=== PATIENT | female | born 1945 | race Caucasian/White ===

== ENCOUNTER 2023-04-13 09:31 | Outpatient (CLI) | payer MEDICARE | END 2023-04-13 23:59 | disposition critical access hospital (66) | LOC: EMS 09:31 | DX: R06.02 Shortness of breath (principal); R07.1 Chest pain on breathing | CPT/HCPCS: A0425; A0429 ==

== ENCOUNTER 2023-04-13 09:38 | Emergency (ER) | payer MEDICARE ==
--- NOTE | 2023-04-13 10:23 | XRAY Report ---
PROCEDURE: Chest 1V INDICATIONS: Chest pain TECHNIQUE: One view of the chest was acquired. COMPARISON: None. FINDINGS: Surgical changes and devices: None. Lungs and pleura: No pleural effusions or pneumothorax. Question mild interstitial pulmonary edema. Mediastinum: Mediastinal contours appear normal. Cardiomegaly. Bones and chest wall: No suspicious bony lesions. Overlying soft tissues appear unremarkable. IMPRESSION: Cardiomegaly. Question mild acute pulmonary edema. Reviewed by: Kye Meyer MD on 04/13/2023 10:22 AM [facility] Approved by: Kye Meyer MD on 04/13/2023 10:22 AM [facility] Station ID: [id number]
[2023-04-13 10:35] LABS: BASOPHILS # (AUTO) 0.1 10^3/uL (0.0-0.1); BASOPHILS % (AUTO) 0.6 %; EOSINOPHILS # (AUTO) 0.3 10^3/uL (0.0-0.7); EOSINOPHILS % (AUTO) 3.3 %; HCT - HEMATOCRIT 32.7 % (37.0-47.0); HGB - HEMOGLOBIN 10.1 g/dL (12.0-16.0); LYMPHOCYTES # (AUTO) 0.7 10^3/uL (1.5-3.5); LYMPHOCYTES % (AUTO) 8.8 %; MEAN CORPUSCULAR HEMOGLOBIN 28.5 pg (27.0-31.0); MEAN CORPUSCULAR HGB CONC 30.9 g/dL (32.0-36.0); MEAN CORPUSCULAR VOLUME 92.1 fL (81.0-99.0); MONOCYTES # (AUTO) 1.6 10^3/uL (0.0-1.0); MONOCYTES % (AUTO) 19.8 %; NEUTROPHILS # (AUTO) 5.4 10^3/uL (1.5-6.6); NEUTROPHILS % (AUTO) 67.2 %; PLT - PLATELET COUNT 167 10^3/uL (130-450); RED BLOOD COUNT 3.55 10^6/uL (4.20-5.40); RED CELL DISTRIBUTION WIDTH 18.9 % (12.0-15.0)
[2023-04-13 10:47] LABS: SLIDE REVIEW? Indicated
--- NOTE | 2023-04-13 10:48 | ED Physician Documentation ---
PD HPI DYSPNEA - Stated complaint Stated Complaint: SOA - Chief complaint Chief Complaint: Resp - History obtained from History obtained from: Patient - History of Present Illness Timing - onset: How many days ago Timing - onset during: Rest, Light activity Timing - duration: Days (several days) Timing - details: Gradual onset, Still present Inciting event(s): Out of meds (not out of meds per se, but was not placed on diuretic when moved to the [facility] few weeks ago.). No: URI Worsened by: Exertion (just light activity the past few days.), Laying flat Associated symptoms: Wheezing. No: Fever, Cough Similar symptoms before: Diagnosis (CHF in the past) Review of Systems Constitutional: denies: Fever, Chills Nose: reports: Congestion Cardiac: reports: Chest pain / pressure, Palpitations Respiratory: reports: Dyspnea, Cough GI: denies: Abdominal Pain, Nausea, Vomiting, Diarrhea PD PAST MEDICAL HISTORY - Past Medical History Past Medical History: Yes Cardiovascular: Congestive heart failure, Hypertension, Coronary artery disease, [place], Atrial fibrillation Respiratory: Sleep apnea Derm: Other Other Past Medical History: cellulitis, pressure ulcer, - Past Surgical History Past Surgical History: No - Present Medications Home Medications: Ambulatory Orders Medication Instructions Recorded Confirmed Albuterol Sulf [Ventolin Hfa 2 puffs INH Q4HR PRN #1 each 04/13/23 Inhaler] Apixaban [Eliquis] 5 mg PO BID 04/13/23 04/13/23 Gabapentin [Neurontin] 300 mg PO BID 04/13/23 04/13/23 Metoprolol Succinate [Toprol Xl] 25 mg PO DAILY #20 tablet 04/13/23 Nystatin [Klayesta] 15 gm TP DAILY 04/13/23 04/13/23 Oxycodone HCl/Acetaminophen 1 each PO Q6HR PRN 04/13/23 04/13/23 [Oxycodone-Acetaminophen 5-325] SULFAM/TRIM 800/160 Prepack 2 1 each PO BID 04/13/23 04/13/23 [BACTRIM DS 800/160 Prepack 2] cephALEXin [Keflex] 500 mg PO QID #20 cap 04/13/23 hydroCHLOROthiazide [Hydrodiuril] 25 mg PO DAILY #20 tablet 04/13/23 - Allergies Allergies/Adverse Reactions: Allergies Allergy/AdvReac Type Severity Reaction Status Date / Time Penicillins Allergy Rash Verified 04/13/23 09:56 - Living Situation Living Arrangement: reports: residential (was at [facility] recently for dyspnea. Dx with leg cellulitis both sides. Did not have chest symptoms at that time. ) - Social History Does the pt smoke?: No Smoking Status: Never smoker Does the pt drink ETOH?: Yes Does the pt have substance abuse?: No PD ED PE NORMAL - Vitals Vital signs reviewed: Yes - General General: No acute distress, Well developed/nourished. No: Alert and oriented X 3 - Neck Neck: Supple, no meningeal sign, No adenopathy - Cardiac Cardiac: RRR, No murmur - Respiratory Respiratory: No: Clear bilaterally (some exp wheezing noted, but no oarse sounds per se. Some fine crackles noted lower aspect of both sides lungs. ) - Abdomen Abdomen: Soft, Non tender - Derm Derm: Normal color, Warm and dry, Other (left breast enlarged with redness, firmness of the skin, warmth of the skin and swelling lateral breast and chest wall c/w infection. No fluctuance. ) - Extremities Extremities: Other (she has wraps on both sides ower legs. No calf enderness per se. ) - Neuro Neuro: Alert and oriented X 3, No motor deficit, Normal speech Results - Vitals Vitals: Vital Signs - 24 hr 04/13/23 04/13/23 04/13/23 09:47 11:56 12:09 Temperature 36.7 C Heart Rate 100 108 H 102 H Respiratory 15 14 20 Rate Blood Pressure 117/72 123/63 O2 Saturation 98 99 04/13/23 04/13/23 04/13/23 13:00 15:00 17:00 Temperature Heart Rate 107 H 102 H 92 Respiratory 18 17 15 Rate Blood Pressure 122/90 H 125/81 H 124/81 H O2 Saturation 95 95 97 04/13/23 04/13/23 17:19 17:45 Temperature Heart Rate 85 92 Respiratory 20 20 Rate Blood Pressure 121/84 H O2 Saturation 98 Oxygen O2 Source Room air - Labs Labs: Laboratory Tests 04/13/23 04/13/23 04/13/23 10:30 10:30 10:30 WBC 8.0 RBC 3.55 L Hgb 10.1 L Hct 32.7 L MCV 92.1 MCH 28.5 MCHC 30.9 L RDW 18.9 H Plt Count 167 MPV 11.0 H Neut # (Auto) 5.4 Lymph # (Auto) 0.[address] # (Auto) 1.6 H Eos # (Auto) 0.3 Baso # (Auto) 0.1 Absolute Nucleated RBC 0.00 Nucleated RBC % 0.0 Manual Slide Review Indicated RBC Morph Micro Appear 3+ ANISOCYTOSIS D-Dimer 506.9 H Sodium 135 Potassium 4.4 Chloride 102 Carbon Dioxide 30 Anion Gap 3.0 L BUN 15 Creatinine 0.7 Estimated GFR (MDRD) 81 L Glucose 101 Calcium 9.2 Magnesium Total Bilirubin 1.3 H AST 16 ALT 10 Alkaline Phosphatase 164 H Troponin I High Sens 484.9 H* B-Natriuretic Peptide Total Protein 6.9 Albumin 3.0 L Globulin 3.9 Albumin/Globulin Ratio 0.8 L Lipase 51 Nasal Adenovirus (PCR) Nasal B. parapertussis DNA (PCR) Nasal Coronavir 229E PCR Nasal Coronavir HKU1 PCR Nasal Coronavir NL63 PCR Nasal Coronavir OC43 PCR Nasal Enterovir/Rhinovir PCR Nasal Influenza B PCR Nasal Influenza A PCR Nasal Parainfluen 1 PCR Nasal Parainfluen 2 PCR Nasal Parainfluen 3 PCR Nasal Parainfluen 4 PCR Nasal RSV (PCR) Nasal B.pertussis DNA PCR Nasal C.pneumoniae (PCR) Joesph Human Metapneumo PCR Nasal M.pneumoniae (PCR) Nasal SARS-CoV-2 (PCR) 04/13/23 04/13/23 04/13/23 10:30 10:30 11:46 WBC RBC Hgb Hct MCV MCH MCHC RDW Plt Count MPV Neut # (Auto) Lymph # (Auto) [place] # (Auto) Eos # (Auto) Baso # (Auto) Absolute Nucleated RBC Nucleated RBC % Manual Slide Review RBC Morph Micro Appear D-Dimer Sodium Potassium Chloride Carbon Dioxide Anion Gap BUN Creatinine Estimated GFR (MDRD) Glucose Calcium Magnesium 1.4 L Total Bilirubin AST ALT Alkaline Phosphatase Troponin I High Sens B-Natriuretic Peptide 396 H Total Protein Albumin Globulin Albumin/Globulin Ratio Lipase Nasal Adenovirus (PCR) NOT DETECTED Nasal B. parapertussis DNA (PCR) NOT DETECTED Nasal Coronavir 229E PCR NOT DETECTED Nasal Coronavir HKU1 PCR DETECTED A Nasal Coronavir NL63 PCR NOT DETECTED Nasal Coronavir OC43 PCR NOT DETECTED Nasal Enterovir/Rhinovir PCR NOT DETECTED Nasal Influenza B PCR NOT DETECTED Nasal Influenza A PCR NOT DETECTED Nasal Parainfluen 1 PCR NOT DETECTED Nasal Parainfluen 2 PCR NOT DETECTED Nasal Parainfluen 3 PCR NOT DETECTED Nasal Parainfluen 4 PCR NOT DETECTED Nasal RSV (PCR) NOT DETECTED Nasal B.pertussis DNA PCR NOT DETECTED Nasal C.pneumoniae (PCR) NOT DETECTED Joesph Human Metapneumo PCR NOT DETECTED Nasal M.pneumoniae (PCR) NOT DETECTED Nasal SARS-CoV-2 (PCR) NOT DETECTED 04/13/23 13:26 WBC RBC Hgb Hct MCV MCH MCHC RDW Plt Count MPV Neut # (Auto) Lymph # (Auto) [place] # (Auto) Eos # (Auto) Baso # (Auto) Absolute Nucleated RBC Nucleated RBC % Manual Slide Review RBC Morph Micro Appear D-Dimer Sodium Potassium Chloride Carbon Dioxide Anion Gap BUN Creatinine Estimated GFR (MDRD) Glucose Calcium Magnesium Total Bilirubin AST ALT Alkaline Phosphatase Troponin I High Sens 490.3 H* B-Natriuretic Peptide Total Protein Albumin Globulin Albumin/Globulin Ratio Lipase Nasal Adenovirus (PCR) Nasal B. parapertussis DNA (PCR) Nasal Coronavir 229E PCR Nasal Coronavir HKU1 PCR Nasal Coronavir NL63 PCR Nasal Coronavir OC43 PCR Nasal Enterovir/Rhinovir PCR Nasal Influenza B PCR Nasal Influenza A PCR Nasal Parainfluen 1 PCR Nasal Parainfluen 2 PCR Nasal Parainfluen 3 PCR Nasal Parainfluen 4 PCR Nasal RSV (PCR) Nasal B.pertussis DNA PCR Nasal C.pneumoniae (PCR) Joesph Human Metapneumo PCR Nasal M.pneumoniae (PCR) Nasal SARS-CoV-2 (PCR) - Rads (name of study) chest CT/CXR Relevant Findings:: Prelim report reviewed (bilateral atelectasis vs infiltrates. No noted vascular congestion. cellulitic changes of skin breast and chest, without any abscess/fluid collection. ), EMP independent interpretation of test chest angio Relevant Findings:: Prelim report reviewed (no PE, no vascular irregular. ) PD Medical Decision Making - ED course Complexity details: re-evaluated patient (much improved breathing and dyspnea with IV diuretic Lasix 40 mg, as well as albuterol nebulizer treatment. She did idurese a large amount of urine. ), considered differential (prior CHF/ACS without meds for it currently, and also MDI for breathing. ), d/w patient, d/w family (Her son was not initially in the ER. He arrived after CT results and I was going in to talk with pt again. 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 Pt does not want any interventional approach such as heart cath nor even stress testing.) Reviewed Lab Results: I reviewed tests results with pt and her son, noting the impression of CHF with some congestion on CXR, elevated BNP, fine crackles initially on exam, and elevated troponin, with consideration of acute nonstemi. However I felt it more likley a work of the heart rather than vascular MN to be the culprit with the troponin rise. Cardiologic testing such as ECHO, stress testing, heart cath, would be needed to more difinitively tell. 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 Reviewed imaging with CXR stating atelectasis vs infiltrates at bases, and the CT also having that on the report. Also the celllitis on breast/chestwall, without abscess. No signs of PE, lung masses. Pt preferred going back to [facility] and is okay resuming her metoprolol, diuretic, and adding antibiotic. She does have viral illness by nasal viral PCR. She has non-COVID coronovirus. blood count is okay. Chemistry panel with slightly low sodium 135. renal function adequate. Troponin elevated in 400s, but repeat over 2 hours later was essential unchanges, suggesting not acute heart injruy. Departure - Departure Disposition: 01 Home, Self Care Clinical Impression: Dyspnea, CHF (congestive heart failure), Atrial fibrillation, Elevated troponin, Cellulitis of female breast Condition: Stable Prescriptions: Albuterol Sulf [Ventolin Hfa Inhaler] 2 puffs INH Q4HR PRN #1 each PRN Reason: Shortness Of Air/Wheezing hydroCHLOROthiazide [Hydrodiuril] 25 mg PO DAILY #20 tablet cephALEXin [Keflex] 500 mg PO QID #20 cap Metoprolol Succinate [Toprol Xl] 25 mg PO DAILY #20 tablet Comments: Continue with your current medications. To that I would add cephalexin antibiotic to cover for the cellulitis on the breast. The CT scan that we did did not show any obvious blood clots or fluid collections around the lung. There was question of very mild early pneumonia in the lower lungs. It did show in the soft tissue there is no signs of abscesses in the breast. This was the question that was wanting to be answered with ultrasound that had been ordered. At this point you would not need to have the ultrasound of the breast as we can identify no abscess based on the CT scan. Add the cephalexin for the cellulitis. I would have you resume a diuretic water pill as well as the metoprolol as it did seem like you had some fluid buildup in the lungs. This was corroberated by blood tests of BNP and Troponin, that showed some increased work/pressure on the hear/tlungs, like CHF. You are likely also having some wheezing related to a respiratory viral illness that was identified on the viral respiratory panel. It was negative for COVID, flu, RSV, adenovirus. It was positive for another simple virus. I would use the albuterol inhaler 2 to 3 puffs 4 times daily for the next week. Follow-up with your primary care or the provider at [facility]. Forms: PCP List Discharge Date/Time: 04/13/23 17:55
[2023-04-13 10:55] LABS: RBC MORPHOLOGY (MULTIPLE) 3+ ANISOCYTOSIS (NORMAL)
[2023-04-13 10:56] LABS: ALBUMIN/GLOBULIN RATIO 0.8 (1.0-2.2); BILIRUBIN,TOTAL 1.3 mg/dL (0.2-1.0); CALCIUM 9.2 mg/dL (8.5-10.3); CREATININE 0.7 mg/dL (0.6-1.3); POTASSIUM 4.4 mmol/L (3.5-4.5); TOTAL PROTEIN 6.9 g/dL (6.4-8.9)
[2023-04-13 11:06] LABS: TROPONIN I HIGH SENSITIVITY 484.9 ng/L (2.3-14.8)
[2023-04-13] MEDS: FUROSEMIDE 40 MG/4 ML VIAL IVP STA (11:26)
[2023-04-13] MEDS: ALBUTEROL NEB 2.5 MG/3 ML INH STA (12:06)
[2023-04-13] MEDS ORDERED: iohexoL-300 100 ML VIAL ONE (12:30)
[2023-04-13 13:23] LABS: B. PARAPERTUSSIS- RESP PCR PAN NOT DETECTED; B. PERTUSSIS- RESP PCR PANEL NOT DETECTED; C. PNEUMONIAE- RESP PCR PANEL NOT DETECTED; CORONAVIRUS 229E-RESP PCR NOT DETECTED; CORONAVIRUS HKU1-RESP PCR DETECTED; CORONAVIRUS NL63-RESP PCR NOT DETECTED; CORONAVIRUS OC43-RESP PCR NOT DETECTED; HUMAN METAPNEUMOVIRUS NOT DETECTED; INFLUENZA A- RESP PCR PANEL NOT DETECTED; INFLUENZA B - RESP PCR PANEL NOT DETECTED; M. PNEUMONIAE- RESP PCR PANEL NOT DETECTED; PARAINFLUENZA VIRUS 1 NOT DETECTED; PARAINFLUENZA VIRUS 2 NOT DETECTED; PARAINFLUENZA VIRUS 3 NOT DETECTED; PARAINFLUENZA VIRUS 4 NOT DETECTED; RHINOVIRUS/ENTEROVIRUS NOT DETECTED; RSV- RESP PCR PANEL NOT DETECTED; SARS-CoV-2 -RESP PCR PANEL NOT DETECTED
[2023-04-13] MEDS: iohexoL-300 100 ML VIAL IVP ONE (14:54)
--- NOTE | 2023-04-13 15:55 | CT Report ---
PROCEDURE: CT angiogram chest with contrast INDICATIONS: dyspnea, elevated d-dimer TECHNIQUE: Helical axial CT of the chest was obtained during the angiographic phase of an intravenou s contrast injection. Multiplanar and MIP reformats utilized. Radiation dose reduction was achieved u tilizing automated exposure control or adjustment of mA and/or kV according to patient size. COMPARISON: None FINDINGS: Vasculature: No evidence of pulmonary embolism, aortic dissection or aneurysm. Lungs and pleura: Lungs and pleural spaces are clear without pulmonary infiltrate, pneumothorax or pl eural effusion. Right basilar platelike atelectasis and scarring the left lung base Mediastinum: Heart size is enlarged. No pericardial effusion. No large vessel abnormality. No mediast inal adenopathy by size criteria. Chest wall and lower neck: Thyroid is unremarkable. No axillary or supraclavicular adenopathy by size . Bones: No aggressive osseous abnormality. Upper Abdomen: Possible stenosis of the proximal SMA noted with reconstitution. The proximal celiac i s widely patent IMPRESSION: No evidence of pulmonary embolism, aortic dissection or aneurysm Cardiomegaly without vascular congestion. Bibasilar atelectasis and or infiltrate. Possible stenosis in the proximal SMA with reconstitution is partially imaged. Consider follow-up CT angiogram abdomen and pelvis if there is a clinical concern for ischemic enteritis. Reviewed by: Jordin Lozano MD on 04/13/2023 2:54 PM [facility] Approved by: Jordin Lozano MD on 04/13/2023 2:54 PM [facility] Station ID: [id number]
--- NOTE | 2023-04-13 16:04 | CT Report ---
PROCEDURE: Chest W INDICATIONS: left breast swelling/tender/firm; dyspnea TECHNIQUE: Helical axial CT of the chest was obtained after an intravenous contrast injection and ref ormatted in multiple planes. Radiation dose reduction was achieved using automated exposure control, adjustment of mA and/or kV according to patient size. COMPARISON: None FINDINGS: Lungs and pleura: Basilar platelike atelectasis with scarring. No focal infiltrate or pulmonary nodul e. Mediastinum: Heart size is enlarged. No pericardial effusion. No large vessel abnormality. No mediast inal adenopathy by size criteria. Atherosclerotic vascular calcification noted in the aortic arch. Chest wall and lower neck: Thyroid is unremarkable. No axillary or supraclavicular adenopathy by size . Partially imaged left chest wall and breast edema. There are reactive left axillary lymph nodes sanjeev sure up to 1 cm short axis Bones: No aggressive osseous abnormality. Upper Abdomen: Unremarkable. IMPRESSION: Left breast and chest wall edema may reflect cellulitis in the proper clinical setting. Mild reactive left axillary lymph nodes Bibasilar platelike atelectasis with bibasilar scarring. Cardiomegaly Reviewed by: Jordin Lozano MD on 04/13/2023 3:02 PM [facility] Approved by: Jordin Lozano MD on 04/13/2023 3:02 PM [facility] Station ID: [id number]
[2023-04-13] MEDS: METOPROLOL 5 MG/5 ML VIAL IVP STA (16:26)
[2023-04-13] MEDS: ceFAZolin 1 GM VIAL IVP STA (16:59)
[2023-04-13] MEDS: ALBUTEROL 1 PUFF INH STA (17:12)
[2023-04-13 17:55] VITALS: BP 121/84; O2SAT 98
== END 2023-04-13 17:55 | disposition home or self-care (01) ==
LOC: ED 09:38
DX: R06.00 Dyspnea, unspecified (principal); I50.9 Heart failure, unspecified; I48.91 Unspecified atrial fibrillation; N61.0 Mastitis without abscess; R79.89 Other specified abnormal findings of blood chemistry; I10 Essential (primary) hypertension; I25.10 Atherosclerotic heart disease of native coronary artery without angina pectoris; Z79.899 Other long term (current) drug therapy; Z79.01 Long term (current) use of anticoagulants
CPT/HCPCS: 36415; 71045; 71260; 71275; 80053; 83690; 83735; 83880; 84484; 85025; 85379; 87633; 93005; 94640; 94664; 99283; 99284; Q9967

== ENCOUNTER 2023-04-13 17:22 | Outpatient (CLI) | payer MEDICARE | END 2023-04-13 23:59 | disposition home or self-care (01) | LOC: EMS 17:22 | PROVIDERS: ATTEND Emergency Medicine | DX: Z74.01 Bed confinement status (principal) | CPT/HCPCS: A0425; A0428 ==